=== PATIENT | female | born 1970 | race Caucasian/White ===

== ENCOUNTER 2019-03-14 16:02 | Emergency (ER) | payer OTHER ==
[2019-03-14 16:44] LABS: BASOPHILS % (AUTO) 2 % (0-3); EOSINOPHILS % (AUTO) 5 % (0-9); HEMATOCRIT 29 % (35-47); HEMOGLOBIN 8.9 gm/dl (12.0-15.5); LYMPHOCYTES % (AUTO) 18.6 % (10-50); MEAN CORPUSCULAR HEMOGLOBIN 25.6 pg (27.0-32.0); MEAN CORPUSCULAR HGB CONC 30.6 gm/dl (32.0-36.0); MEAN CORPUSCULAR VOLUME 84 fL (81-99); MONOCYTES % (AUTO) 15.8 % (0-12); NEUTROPHILS % (AUTO) 59.2 % (37-80)
[2019-03-14 16:47] LABS: APPEARANCE,URINE Clear; BILIRUBIN,URINE NEGATIVE (NEGATIVE); COLOR,URINE Yellow; GLUCOSE, URINE (UA) NEGATIVE (NEGATIVE); KETONES,URINE NEGATIVE (NEGATIVE); LEUKOCYTE ESTERASE ,URINE 2+ (NEGATIVE); NITRATE,URINE NEGATIVE (NEGATIVE); OCCULT BLOOD,URINE NEGATIVE (NEG-TRACE); PH,URINE 5.5
[2019-03-14 16:54] LABS: ALBUMIN 3.4 gm/dl (3.4-5.0); CARBON DIOXIDE 26.2 mEq/L (21-32); CREATININE 0.63 mg/dl (0.60-1.00); POTASSIUM 3.4 mMol/L (3.5-5.1); TOTAL PROTEIN 7.8 gm/dl (6.4-8.2)
[2019-03-14 16:55] LABS: RBC,URINE 0-2 (0-3AV/HPF)
[2019-03-14 16:56] LABS: BACTERIA 1+ (< 1+); CRYSTALS NEGATIVE (0-3 AVE/HPF)
[2019-03-14 17:03] LABS: HYPOCHROMASIA SL; POIKILOCYTOSIS SLIGHT AMT; TARGET CELLS PRESENT
[2019-03-14 17:10] VITALS: RESP 18; TEMP 98.1
[2019-03-14] MEDS ORDERED: POTASSIUM CHLORIDE 10 MEQ TER PO ONE (17:22)
[2019-03-14] MEDS ORDERED: CIPROFLOXACIN HCL 500 MG TAB PO ONE ×2 (17:22→17:49)
[2019-03-14] MEDS ORDERED: POTASSIUM CHLORIDE 10 MEQ TER ONE (17:32)
[2019-03-14 20:29] VITALS: BP 131/76; PULSE 78; O2SAT 98
== END 2019-03-14 20:30 | disposition home or self-care (01) | DRG 690 ==
LOC: ED 16:02
DX: N39.0 Urinary tract infection, site not specified (principal)
CPT/HCPCS: 36415; 80053; 81001; 82140; 85025; 87088; 99283; 99284; A9270-GY